=== PATIENT | female | born 1955 | race Caucasian/White ===

== ENCOUNTER 2023-02-15 13:37 | Observation (INO) | payer MEDICARE ==
[~2023-02-15] VITALS: Ht 165.1 cm; Wt 79.7 kg
[2023-02-15] MEDS ORDERED: OMEP20ER (13:48)
[2023-02-15 20:31] VITALS: BP 126/79
[2023-02-16 05:34] VITALS: BP 139/86
--- NOTE | 2023-02-16 06:25 | NUR ---
SHIFT SUMMARY PT A&OX4, AND COOPERATIVE WITH CARE. NO ACUTE CHANGES, VSS. MEDICATED FOR PAIN TWICE. 1-ASSIST TO BSC. SPLINT TO R ANKLE, CAP REFILL <3 SEC. TOLERATING PO INTAKE. CALLS APPROPRIATELY, CALL LIGHT WITHIN REACH.
[2023-02-16 07:15] VITALS: BP 114/71
--- NOTE | 2023-02-16 09:25 | NUR ---
therapy in to see pt.
[2023-02-16 13:42] VITALS: BP 127/87
--- NOTE | 2023-02-16 13:46 | NUR ---
PT'S MOTHER IS PT ON MED FLOOR. PT GOING TO VISIT MOTHER BRIEFLY PRIOR TO DISCHARGING.
[2023-02-16] MEDS ORDERED: HYDR1TAB94 PO (14:28)
--- NOTE | 2023-02-16 14:42 | NUR ---
DISCHARGED PT'S FAMILY ARRIVED. REVIEWED DC INSTRUCTIONS W/PT; VERBALIZED UNDERSTANDING. DC'D IV, CATHETER INTACT. PT LEFT UNIT IN WC W/POSSESSIONS AND DC PAPERWORK IN HAND TO RIDE WAITING OUTSIDE.
== END 2023-02-16 14:40 | disposition home or self-care (01) ==
LOC: ER 13:37 → MEDS 13:38 → SURS 20:10
PROVIDERS: ADMIT Internal Medicine
DX: S82.851A Displaced trimalleolar fracture of right lower leg, initial encounter for closed fracture (principal); W18.30XA Fall on same level, unspecified, initial encounter; Z72.0 Tobacco use; K21.9 Gastro-esophageal reflux disease without esophagitis
CPT/HCPCS: 27818; 73552; 73600; 96374-59; 96375-59; 97116; 97530; 99285-25; A9270; G0378; J1170; J1885; J2270; J2405; J2704; J3010